=== PATIENT | male | born 1990 | race Caucasian/White ===

== ENCOUNTER 2018-07-25 10:48 | Inpatient (IN) | payer MEDICAID ==
[~2018-07-25] VITALS: Ht 175.3 cm; Wt 168.0 kg
[2018-07-25 13:41] VITALS: BP 146/81
[2018-07-25] MEDS ORDERED: CLOZ100 PO (14:17)
[2018-07-25 16:13] VITALS: BP 136/89
[2018-07-26 00:47] VITALS: BP 130/87
[2018-07-26] MEDS: ZOLPIDEM TARTRATE 10 MG TABLET PO PRN (01:30)
[2018-07-26] MEDS: LORazepam 2 MG TABLET PO PRN ×2 (01:30→16:33)
[2018-07-26 08:24] VITALS: BP 134/84
[2018-07-26] MEDS: CloZAPine 100 MG TABLET PO SCH ×2 (10:30→16:32)
[2018-07-26 16:00] VITALS: BP 132/79
[2018-07-26] MEDS: QUEtiapine FUMARATE 200 MG TABLET PO SCH (21:01)
[2018-07-27 00:11] VITALS: BP 116/83
[2018-07-27] MEDS: LORazepam 2 MG TABLET PO PRN ×3 (00:30→16:47)
[2018-07-27] MEDS: HALOPERIDOL 5 MG TABLET PO PRN ×3 (00:30→16:47)
[2018-07-27] MEDS: ZOLPIDEM TARTRATE 10 MG TABLET PO PRN (00:30)
[2018-07-27 08:54] VITALS: BP 131/78
[2018-07-27 09:22] LABS: BASOPHILS % (AUTO) 0.3 % (0.0-2.0); EOSINOPHILS % (AUTO) 0 % (1.0-6.0); HEMATOCRIT 47.5 % (41-53); HEMOGLOBIN 16.3 g/dL (13.5-17.5); LYMPHOCYTES # (AUTO) 2.6 K/uL (1.0-4.8); LYMPHOCYTES % (AUTO) 39.4 % (22.0-44.0); MEAN CORPUSCULAR HEMOGLOBIN 27.8 pg (26.0-34.0); MEAN CORPUSCULAR HGB CONC 34.3 G/dL (31.0-37.0); MEAN CORPUSCULAR VOLUME 81 fL (80-100); MONOCYTES # (AUTO) 0.7 K/uL (0.1-1.0); MONOCYTES % (AUTO) 10.6 % (2.0-9.0); NEUTROPHILS # (AUTO) 3.3 K/uL (1.8-7.7); NEUTROPHILS % (AUTO) 49.7 % (40.0-70.0); PLATELET COUNT (AUTO) 168 K/uL (150-450); RED BLOOD CELL COUNT(AUTO) 5.85 MIL/uL (4.50-5.90); RED CELL DISTRIBUTION WIDTH 14.9 % (11.5-14.5)
[2018-07-27 09:35] LABS: ALANINE AMINOTRANSFERASE 36 U/L (12-78); ALBUMIN 3.5 g/dL (3.4-5.0); ALKALINE PHOSPHATASE 91 U/L (46-116); ANION GAP 10 mmol/L (8-16); ASPARTATE AMINOTRANSFERASE 21 U/L (15-37); BILIRUBIN,TOTAL 0.3 mg/dL (0.1-1.0); CALCIUM, TOTAL 9.4 mg/dL (8.8-10.5); CARBON DIOXIDE 27 mmol/L (22-29); CHLORIDE 102 mmol/L (98-107); CHOL/HDL RATIO 3.9 (4.2-7.3); CHOLESTEROL 121 mg/dL (131-200); CREATININE 0.94 mg/dL (0.60-1.30); FREE T4 (FREE THYROXINE) 0.93 ng/dL (0.76-1.46); GLOMERULAR FILTR. RATE CALC > 60 mL/min (>60); GLUCOSE,RANDOM 105 mg/dL (70-110); HDL CHOLESTEROL 31 mg/dL (40-60); LDL CHOL (CALC.) 50 mg/dL (0-130); POTASSIUM 4.2 mmol/L (3.5-5.1); SODIUM SERUM 139 mmol/L (136-145); THYROID STIMULATING HORMONE 0.76 uIU/mL (0.36-3.74); TRIGLYCERIDES 200 mg/dL (15-150); UREA NITROGEN, BLOOD 18 mg/dL (7-18)
[2018-07-27] MEDS: CloZAPine 100 MG TABLET PO SCH ×2 (09:38→16:47)
[2018-07-27 09:56] LABS: HEMOGLOBIN A1C 5.5 % (4.5-6.2)
[2018-07-27 16:20] VITALS: BP 139/86
[2018-07-27] MEDS: QUEtiapine FUMARATE 200 MG TABLET PO SCH (20:12)
[2018-07-28 01:45] VITALS: BP 128/84
[2018-07-28] MEDS: LORazepam 2 MG TABLET PO PRN ×3 (01:50→16:53)
[2018-07-28] MEDS: ZOLPIDEM TARTRATE 10 MG TABLET PO PRN (01:50)
[2018-07-28] MEDS: HALOPERIDOL 5 MG TABLET PO PRN ×2 (01:50→16:53)
[2018-07-28 08:28] LABS: BASOPHILS % (AUTO) 0.2 % (0.0-2.0); EOSINOPHILS % (AUTO) 0 % (1.0-6.0); HEMATOCRIT 46.6 % (41-53); LYMPHOCYTES % (AUTO) 33.3 % (22.0-44.0); MEAN CORPUSCULAR HEMOGLOBIN 28.2 pg (26.0-34.0); MEAN CORPUSCULAR HGB CONC 34.3 G/dL (31.0-37.0); MEAN CORPUSCULAR VOLUME 82 fL (80-100); MONOCYTES # (AUTO) 0.6 K/uL (0.1-1.0); MONOCYTES % (AUTO) 9.4 % (2.0-9.0); NEUTROPHILS # (AUTO) 3.4 K/uL (1.8-7.7); NEUTROPHILS % (AUTO) 57.1 % (40.0-70.0); PLATELET COUNT (AUTO) 168 K/uL (150-450); RED BLOOD CELL COUNT(AUTO) 5.67 MIL/uL (4.50-5.90); RED CELL DISTRIBUTION WIDTH 14.6 % (11.5-14.5)
[2018-07-28] MEDS: CloZAPine 100 MG TABLET PO SCH ×2 (08:31→16:52)
[2018-07-28 08:33] VITALS: BP 116/68
[2018-07-28 09:02] LABS: HEMOGLOBIN A1C 5.4 % (4.5-6.2)
[2018-07-28 09:18] LABS: ALANINE AMINOTRANSFERASE 39 U/L (12-78); ALBUMIN 3.7 g/dL (3.4-5.0); ALKALINE PHOSPHATASE 98 U/L (46-116); ANION GAP 10 mmol/L (8-16); ASPARTATE AMINOTRANSFERASE 21 U/L (15-37); BILIRUBIN,TOTAL 0.3 mg/dL (0.1-1.0); CALCIUM, TOTAL 9.4 mg/dL (8.8-10.5); CARBON DIOXIDE 27 mmol/L (22-29); CHLORIDE 101 mmol/L (98-107); CHOL/HDL RATIO 3.4 (4.2-7.3); CHOLESTEROL 124 mg/dL (131-200); CREATININE 0.79 mg/dL (0.60-1.30); GLOMERULAR FILTR. RATE CALC > 60 mL/min (>60); GLUCOSE,RANDOM 101 mg/dL (70-110); HDL CHOLESTEROL 36 mg/dL (40-60); LDL CHOL (CALC.) 61 mg/dL (0-130); SODIUM SERUM 138 mmol/L (136-145); THYROID STIMULATING HORMONE 0.56 uIU/mL (0.36-3.74); TRIGLYCERIDES 136 mg/dL (15-150); UREA NITROGEN, BLOOD 14 mg/dL (7-18)
[2018-07-28 16:17] VITALS: BP 136/88
[2018-07-28] MEDS: QUEtiapine FUMARATE 200 MG TABLET PO SCH (20:59)
[2018-07-29 02:25] VITALS: BP 113/68
[2018-07-29] MEDS: LORazepam 2 MG TABLET PO PRN ×2 (02:38→08:46)
[2018-07-29] MEDS: ZOLPIDEM TARTRATE 10 MG TABLET PO PRN (02:38)
[2018-07-29 08:44] VITALS: BP 138/91
[2018-07-29] MEDS: CloZAPine 100 MG TABLET PO SCH (08:46)
[2018-07-29] MEDS ORDERED: LITHIUM CARBONATE 300 MG CAPSULE PO ONE (10:30)
[2018-07-29] MEDS ORDERED: LITHIUM CARBONATE 300 MG CAPSULE PO SCH ×2 (10:30→17:00)
[2018-07-29] MEDS ORDERED: QUET200T PO (10:37)
[2018-07-29] MEDS ORDERED: LITH300C3 PO (10:37)
== END 2018-07-29 11:45 | disposition home or self-care (01) | DRG 750 ==
LOC: B3A 13:55
PROVIDERS: ADMIT Psychiatry & Neurology Child & Adolescent Psychiatry; ATTEND Psychiatry & Neurology Child & Adolescent Psychiatry
DX: F20.0 Paranoid schizophrenia (principal); E78.5 Hyperlipidemia, unspecified; F41.9 Anxiety disorder, unspecified; F19.10 Other psychoactive substance abuse, uncomplicated; R00.0 Tachycardia, unspecified; R03.0 Elevated blood-pressure reading, without diagnosis of hypertension; Z28.21 Immunization not carried out because of patient refusal; Z79.899 Other long term (current) drug therapy; Z71.51 Drug abuse counseling and surveillance of drug abuser
CPT/HCPCS: 83036; 84439; 84443